=== PATIENT | male | born 1950 | race Caucasian/White ===

== ENCOUNTER 2023-08-26 09:30 | Outpatient (AMB) | payer MEDICARE, SELFPAY ==
--- NOTE | 2023-08-26 09:37 | HO.NEPHOV ---
HPI HPI Comments History of Present Illness Details I had the privilege of seeing Steve in follow-up of his hypertension. He has been on enalapril 10 mg as well as amlodipine 10 mg daily at home. Now and then he brings a dose down to 5 mg without checking with a physician(when he feels his blood pressure is low even though he does not have any symptoms at that time). His lowest systolic reading was 112 at home. He has not had any blood work recently. He has no history of hypokalemia, renal dysfunction, hypercalcemia, thyroid dysfunction or sleep apnea. He takes a normal diet. He is a smoker. He denies coronary artery disease, congestive heart failure, CVA, renal artery stenosis or peripheral arterial disease. He monitors his blood pressure at home. He feels well. [facility] Medical History (Updated 08/26/23 @ 12:10 by Connor Perla MD) Hypertension Social History (Updated 08/26/23 @ 09:41 by Angela White MA) Alcohol intake: current Patient Tobacco Use Status: Current everyday Tobacco user Vital Signs 08/26/23 09:38 Height 5 ft 9 in Weight 177 lb 6 oz BMI 26.2 BP 140/80 H Blood Pressure Location Lt brachial Position Sitting Pulse 87 Pulse Source Pulse Oximeter Pulse Oximetry (%) 99 Oxygen Delivery Method Room Air Physical Exam Vital Signs: Last Vital Signs Pulse 87 08/26/23 09:38 BP 140/80 H 08/26/23 09:38 Pulse Ox 99 08/26/23 09:38 Oxygen Delivery Method Room Air 08/26/23 09:38 BMI result Body Mass Index 26.2 Const General: comfortable and no acute distress Orientation/consciousness: patient oriented x3 HEENT Head: Yes normocephalic Mouth: Normal oral and palatal mucosa present Eyes EOM: EOMs intact bilaterally Neck Neck: Yes supple Resp Auscultation: clear to auscultation bilaterally Cardio Jugular venous distension: no JVD Rate: regular rate GI Palpation (GI): Soft to palpation Auscultation: normal bowel sounds General: Yes no CVA tenderness Back/Spine/Pelvis Back: no CVA tenderness Skin General skin exam: no rashes or lesions noted Neuro General: patient oriented x3 and moves all extremities Extrem General: Yes no pedal edema Assessment & Plan Assessment & Plan (1) Hypertension: Code(s): I10 - Essential (primary) hypertension Qualifiers: Hypertension type: primary hypertension Qualified Code(s): I10 - Essential (primary) hypertension Plan All his blood pressure readings from home were reviewed. I asked him to continue enalapril 10 mg in the morning and amlodipine 10 mg at supper time. He has no history of left ventricular hypertrophy, retinopathy or proteinuria. His renal functions have been normal. I asked him to stop smoking. He should continue low-sodium diet and exercise. He should maintain good hydration. He should avoid nonsteroidal anti-inflammatories given he is on ARSEN-inhibitor. I did not make any other medication changes today. All his questions were answered. Follow-up blood work ordered and follow-up appointment given. Orders: Orders Creatinine Today I10 - Essential (primary) hypertension Protein Creatinine Ratio, Ur Today I10 - Essential (primary) hypertension Electrolytes Today I10 - Essential (primary) hypertension Calcium Today I10 - Essential (primary) hypertension Blood Urea Nitrogen Today I10 - Essential (primary) hypertension Coding Level of Care Code Est Pt Level 4 (45903) Diagnoses Primary hypertension I10 Hypertension type: primary hypertension Results Reviewed Nephrology Results: No Data to Display
[2023-08-26 09:38] VITALS: BP 140/80; PULSE 87; O2SAT 99; BMI 26.2
== END 2023-08-26 10:31 | disposition home or self-care (01) ==
PROVIDERS: PCP Internal Medicine; Visit Provider Internal Medicine Nephrology
DX: I10 Essential (primary) hypertension (principal)
CPT/HCPCS: 99214

== ENCOUNTER → 2023-08-26 09:30 | Outpatient (BNVA) | payer MEDICARE, SELFPAY | PROVIDERS: PCP Internal Medicine; Visit Provider Internal Medicine Nephrology ==

== ENCOUNTER 2023-08-26 10:20 | Outpatient (REF) | payer MEDICARE, SELFPAY ==
[2023-08-26 17:04] LABS: Anion Gap 9 (12-20); Blood Urea Nitrogen 13 mg/dL (9-16); Calcium 9.3 mg/dL (8.4-10.2); Carbon Dioxide 28 mmol/L (22-29); Chloride 106 mmol/L (96-108); Estimated Glomerular Filt Rate > 60; Potassium 4.1 mmol/L (3.3-5.1); Sodium 139 mmol/L (135-145)
[2023-08-26 17:18] LABS: Creatinine Urine 37.87 mg/dL; Total Protein Urine Random < 7 mg/dL (<12)
== END 2023-08-26 10:21 | disposition home or self-care (01) ==
LOC: HO.HKASLDS 10:20
PROVIDERS: Visit Provider Internal Medicine Nephrology
DX: I10 Essential (primary) hypertension (principal)
CPT/HCPCS: 36415; 80051; 82310; 82565; 82570; 84156; 84520; 99212

== ENCOUNTER 2024-01-27 10:05 | Outpatient (AMB) | payer MEDICARE, SELFPAY ==
--- NOTE | 2024-01-27 10:05 | HO.NEPHOV_ITS ---
Vital Signs 01/27/24 10:06 Height 5 ft 9 in Weight 169 lb BMI 25.0 BP 168/90 H Blood Pressure Location Lt brachial Position Sitting Pulse 97 Pulse Source Pulse Oximeter Pulse Oximetry (%) 99 Oxygen Delivery Method Room Air Intake Visit Reasons: 4 mon follow up/[place] Expert Required: No Accompanied by: Self / Same As Patient Allergies No Known Allergies Allergy (Verified 01/27/24 10:08) HPI Comments Details: I had the privilege of seeing Steve in follow-up of his hypertension. He has been on enalapril 10 mg as well as amlodipine 10 mg daily at home. His lowest systolic reading was 112 at home. He has no history of hypokalemia, renal dysfunction, hypercalcemia, thyroid dysfunction or sleep apnea. He takes a normal diet. He is a smoker. He denies coronary artery disease, congestive heart failure, CVA, renal artery stenosis or peripheral arterial disease. He monitors his blood pressure at home. He feels well [facility] Medical History Hypertension Surgical History H/O colonoscopy Social History Alcohol intake: current Patient Tobacco Use Status: Current everyday Tobacco user Review of Systems Const All systems reviewed & are unremarkable except as noted in HPI and below Physical Exam Vital Signs: Last Vital Signs Pulse 97 01/27/24 10:06 BP 168/90 H 01/27/24 10:06 Pulse Ox 99 01/27/24 10:06 Oxygen Delivery Method Room Air 01/27/24 10:06 BMI result Body Mass Index 25.0 Const General: comfortable and no acute distress Orientation/consciousness: patient oriented x3 HEENT Head: Yes normocephalic Mouth: Normal oral and palatal mucosa present Eyes EOM: EOMs intact bilaterally Neck Neck: Yes supple Resp Auscultation: clear to auscultation bilaterally Cardio Jugular venous distension: no JVD Rate: regular rate GI Palpation (GI): Soft to palpation Auscultation: normal bowel sounds General: Yes no CVA tenderness Back/Spine/Pelvis Back: no CVA tenderness Skin General skin exam: no rashes or lesions noted Neuro General: patient oriented x3 and moves all extremities Extrem General: Yes no pedal edema Results Reviewed Nephrology Results: Sodium 139 mmol/L (135-145) 08/26/23 Potassium 4.1 mmol/L (3.3-5.1) 08/26/23 Chloride 106 mmol/L (96-108) 08/26/23 Carbon Dioxide 28 mmol/L (22-29) 08/26/23 BUN 13 mg/dL (9-16) 08/26/23 Creatinine 0.78 mg/dL (0.5-1.4) 08/26/23 Calcium 9.3 mg/dL (8.4-10.2) 08/26/23 Urine Creatinine 37.87 mg/dL 08/26/23 Protein/Creatinin Ratio TNP 08/26/23 Assessment & Plan Assessment & Plan (1) Hypertension: Code(s): I10 - Essential (primary) hypertension Category: Medical Qualifiers: Hypertension type: primary hypertension Qualified Code(s): I10 - Essential (primary) hypertension Plan All his blood pressure readings from home were reviewed. I asked him to increase enalapril to 15 mg in the morning and reduce amlodipine to 5 mg at supper time. He has no history of left ventricular hypertrophy, retinopathy or proteinuria. His renal functions have been normal. I asked him to stop smoking. He should continue low-sodium diet and exercise. He should maintain good hydration. He should avoid nonsteroidal anti-inflammatories given he is on ARSEN-inhibitor. I plan to maximize ACEI and D/C Amlodipine at next visit. I did not make any other medication changes today. All his questions were answered. Follow-up blood work ordered and follow-up appointment given Orders: Orders Creatinine Today I10 - Essential (primary) hypertension Electrolytes Today I10 - Essential (primary) hypertension Blood Urea Nitrogen Today I10 - Essential (primary) hypertension Coding Level of Care Code Est Pt Level 4 (69539) Diagnoses Primary hypertension I10 Hypertension type: primary hypertension
[2024-01-27 10:06] VITALS: BP 168/90; PULSE 97; O2SAT 99; BMI 25.0
== END 2024-01-27 10:45 | disposition home or self-care (01) ==
PROVIDERS: PCP Internal Medicine; Visit Provider Internal Medicine Nephrology
DX: I10 Essential (primary) hypertension (principal)
CPT/HCPCS: 99214

== ENCOUNTER → 2024-01-27 10:05 | Outpatient (BNVA) | payer MEDICARE, SELFPAY | PROVIDERS: PCP Internal Medicine; Visit Provider Internal Medicine Nephrology | DX: I10 Essential (primary) hypertension (principal) | CPT/HCPCS: 99212 ==

== ENCOUNTER 2024-07-27 10:38 | Outpatient (AMB) | payer MEDICARE, SELFPAY ==
[2024-07-27 10:45] VITALS: BP 150/80; BMI 25.6
--- NOTE | 2024-07-27 10:45 | HO.NEPHOV ---
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 He has been on enalapril 10 mg as well as amlodipine 10 mg daily at home. He has no history of hypokalemia, renal dysfunction, hypercalcemia, thyroid dysfunction or sleep apnea. He takes a normal diet. He is a smoker. He denies coronary artery disease, congestive heart failure, CVA, renal artery stenosis or peripheral arterial disease. He monitors his blood pressure at home. He feels well [facility] Medical History Hypertension Surgical History H/O colonoscopy Social History Alcohol intake: current Patient Tobacco Use Status: Current everyday Tobacco user Review of Systems Const All systems reviewed & are unremarkable except as noted in HPI and below Physical Exam Vital Signs: Last Vital Signs BP 150/80 H 07/27/24 10:45 BMI result Body Mass Index 25.6 Const General: comfortable and no acute distress Orientation/consciousness: patient oriented x3 HEENT Head: Yes normocephalic Mouth: Normal oral and palatal mucosa present Eyes EOM: EOMs intact bilaterally Neck Neck: Yes supple Resp Auscultation: clear to auscultation bilaterally Cardio Jugular venous distension: no JVD Rate: regular rate GI Palpation (GI): Soft to palpation Auscultation: normal bowel sounds General: Yes no CVA tenderness Back/Spine/Pelvis Back: no CVA tenderness Skin General skin exam: no rashes or lesions noted Neuro General: patient oriented x3 and moves all extremities Extrem General: Yes no pedal edema Results Reviewed Nephrology Results: Sodium 139 mmol/L (135-145) 08/26/23 Potassium 4.1 mmol/L (3.3-5.1) 08/26/23 Chloride 106 mmol/L (96-108) 08/26/23 Carbon Dioxide 28 mmol/L (22-29) 08/26/23 BUN 13 mg/dL (9-16) 08/26/23 Creatinine 0.78 mg/dL (0.5-1.4) 08/26/23 Calcium 9.3 mg/dL (8.4-10.2) 08/26/23 Urine Creatinine 37.87 mg/dL 08/26/23 Protein/Creatinin Ratio TNP 08/26/23 Assessment & Plan Assessment & Plan (1) Hypertension: Code(s): I10 - Essential (primary) hypertension Category: Medical Qualifiers: Hypertension type: primary hypertension Qualified Code(s): I10 - Essential (primary) hypertension Plan All his blood pressure readings from home were reviewed. I asked him to take enalapril 10 mg in the morning and amlodipine 5 mg daily. He has no history of left ventricular hypertrophy, retinopathy or proteinuria. His renal functions have been normal. I asked him to stop smoking. He should continue low-sodium diet and exercise. He should maintain good hydration. He should avoid nonsteroidal anti-inflammatories given he is on ARSEN-inhibitor. I did not make any other medication changes today. All his questions were answered. Follow-up blood work ordered and follow-up appointment given Orders: Orders Blood Urea Nitrogen 1 Year I10 - Essential (primary) hypertension Electrolytes 1 Year I10 - Essential (primary) hypertension Creatinine 1 Year I10 - Essential (primary) hypertension Protein Creatinine Ratio, Ur 1 Year I10 - Essential (primary) hypertension Coding Level of Care Code Est Pt Level 4 (35291) Diagnoses Primary hypertension I10 Hypertension type: primary hypertension
--- OUTSIDE RECORDS SUMMARY | 2024-07-27 12:43 | XMS_ITS | Clinical Summary ---
Author Organization [facility] Address [address] [place] [address] Phone Care Team Providers Care Food Service Hotel Runner Name Role Phone Ken Cohen Primary Care Provider [phone] Allergies No known active allergies Medications Flovent HFA 110 MCG/ACT inhaler INHALE 1 PUFF INTO THE LUNGS 2 TIMES DAILY FOR 30 DAYS. 11/19/2021 Active enalapril (VASOTEC) 10 MG tablet Take 1 tablet (10 mg total) by mouth 1 (one) time each day 90 tablet 3 08/27/2022 Active amLODIPine (NORVASC) 10 MG tablet TAKE 1 TABLET BY MOUTH 1 TIME EACH DAY. 90 tablet 1 11/26/2022 Active Active Problems Problem Noted Date Diagnosed Date Hypertension 08/19/2021 Benign hypertension 12/16/2007 Resolved Problems Problem Noted Date Diagnosed Date Resolved Date Tubular adenoma of colon 06/19/2015 Tobacco user 11/06/2005 08/18/2021 Hyperlipidemia 06/19/2005 08/18/2021 Immunizations Name Administration Dates Next Due Influenza Split High Dose Preservative Free IM 03/03/2021,03/23/2019,03/25/2018,2016 Pneumococcal Conjugate 13-Valent 03/23/2019 Tdap 01/09/2008 Family History Medical History Relation Comments Hypertension Father Relation Status Comments Father Mother Social History Tobacco Use Types Packs/Day Years Used Date Smoking Tobacco: Every Day Cigarettes Smokeless Tobacco: Never Tobacco Cessation:Ready to Q uit: No; Counseling Given: No Alcohol Use Standard Drinks/Week Comments Yes 10 (1 standard drink = 0.6 oz pu re alcohol) Sex and Gender Information Value Date Recorded Sex Assigned at Not on file Legal Sex Male 3:53 PM EST Gender Identity Not on file Sexual Orientation Not on file Last Filed Vital Signs Vital Sign Reading Time Taken Comments Blood Pressure 130/80 08/27/2022 2:26 PM EDT Pulse 88 08/27/2022 2:26 PM EDT Temperature - - Respiratory Rate - - Oxygen Saturation 97% 08/27/2022 2:26 PM EDT Inhaled Oxygen Concentration - - Weight 80.5 kg (177 lb 6.4 oz) 08/27/2022 2:26 P M EDT Height - - Body Mass Index - - Plan of Treatment Health Maintenance Due Date Last Done Comments Colorectal Cancer Screening: Annual FOBT 2000 Colorectal Cancer Screening: Colonoscopy 2000 Colorectal Cancer Screening: Sigmoidoscopy 2000 Pneumococcal Vaccine: 65+ Years (2 of 2 - PPSV23 or PCV20) 05/18/2019 03/23/2019 Influenza Vaccine (#1) 2024 , 03/23/2019, 03/25/2018, Additional history exists Hepatitis B Vaccine Aged Out No longe r eligible based on patient's age to complete this topic Insurance MEDICARE [facility] [id number] [facility] MEDICARE Care Teams Food Service Hotel Runner Relationship Specialty Start Date End Date Ken Cohen [address] [place] [id number] PCP - General Internal Medicine 08/19/21
--- OUTSIDE RECORDS SUMMARY | 2024-07-27 12:43 | XMS_ITS | Encounter Summary ---
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 Date: July 03, 2024 Diagnosis: Left hand thumb felon Last seen: 06/28/2024 HPI: Steve Perera is a [id number] 74 y.o. male presenting for followup regarding left thumb felon. He was seen by Dr. Muñoz on 06/28/2024 where his thumb was debrided with a digital block. Patient removed his wick packing at home on 06/30 and has been doing daily dressing changes with bacitracin since then. He was prescribed clindamycin at his last visit and reports he has been taking this daily as prescribed. Denies much pain today. Denies any numbness and tingling. Reports that he has felt that his wound has been improving. Denies any diarrhea or constipation since new antibiotic use. Denies any fevers or chills. Objective Focused Exam: Left Upper Extremity Dressing removed. 2 cm x 1 cm wound along the radial aspect of the distal thumb status post debridement on 06/28/2024. New skin formation present at the area of the wound. There is some maceration of the remaining skin most notably at the radial portion and distal tip of the wound. No drainage. No tenderness to palpation at the flexor tendon sheath. Minimal pain with IP flexion. There is improvement of his erythema and swelling comparison to last visit. Fires EPL/FPL/FDP/IO SILT M/R/U, decreased sensation to light touch over thumb. hand warm well perfused Imaging: No new imaging Medical Decision Making (base on 2 out of 3 elements): Problems Addressed: Moderate- 1 acute, complicated injury Tests Ordered and/or Reviewed: Low Risk Level: Low risk Assessment: Steve Krishna Perera presents follow-up with miriam amezquita status postdebridement with Dr. Muñoz on06/28/2024. He has been taking clindamycin and doing daily dressing changes since then. He appears анна doing better on physical exam today with signs of healing. Denies any fevers or chills or signs of systemic infection. We discussed continuing daily dressing changes with bacitracin ointment, Xeroform, and gauze. Recommended to keep the dressing clean dry and intact. We also discussed gentle washing of the finger before each dressing change. I discussed avoiding soaking the finger for extendedperiod of time. He is advised to finish the entirety of his clindamycin as prescribed. Would like close follow-up and monitoring and follow-up the patient within the next week. I advisedhim to call the office sooner if he has signs of worsening of infection including increased redness, swelling, fevers, chills, new draining. He is understanding of this plan and all other questions were answered at this time. Plan: Left thumb felon -Continue daily dressing changes with application of bacitracin, Xeroform, gauze. -Close follow-up in 5 to 7 days or for new or worsening symptoms -Continue clindamycin as prescribed Luis Morales PA-C documented in this encounter Plan of Treatment Upcoming Encounters Date Type Department Care Team (Late st Contact Info) Description 10/17/2024 9:30 AM EDT Office Visit Internal Medicine - [address] [address] Ken Cooper MD [address] [place] [id number] documented as of this encounter Visit Diagnoses Diagnosis Felon of finger of left hand- Primary documented in this encounter Care Teams Foam Caster Relationship Specialty Start Date End Date Ken Cooper MD [address] [place] [id number] PCP - General Internal Medicine 03/11/16 documented as of this encounter
--- OUTSIDE RECORDS SUMMARY | 2024-07-27 12:43 | XMS_ITS | Clinical Summary ---
Author Organization [facility] [address] [facility] [address] [place] Phone Care Team Providers Care Sales Floor Manager Name Role Phone Ken Cooper MD Primary Care Provider [phone] Allergies No known active allergies Medications enalapril (VASOTEC) 10 mg tablet Take 1 Tablet by mouth every morning. 10/15/2023 Active amLODIPine (NORVASC) 10 mg tablet Take 1 tablet (10 mg total) by mouth 1 (one) time each day. 90 tablet 1 04/19/2024 Active cephalexin (KEFLEX) 500 mg capsuleIndicati ons:Felon of finger of left hand Take 1 capsule (500 mg total) by mouth 4 (four) times a day for 7 days. 28 each 06/26/2024 07/03/19 25 clindamycin (CLEOCIN) 300 mg capsule Take 1 capsule (300 mg total) by mouth 3 (three) times a day for 7 days. 21 each 06/28/2024 07/05/19 25 Active Problems Problem Noted Date Diagnosed Date Tubular adenoma of colon 06/19/2015 Assessment & Plan (04/17/2024 10:02 AM EST): Repeat colonoscopy in 3 years for his history of colon polyp. HTN (hypertension), benign 12/16/2007 Assessment & Plan (04/17/2024 10:02 AM EST): Blood pressure suboptimal. I did explain to him that I would like him to take amlodipine 10 mg daily enalapril 10 mg daily. I want him to be compliant his medication regimen. He seems disapproving about taking the full tablet. Advised him to keep a blood pressure log. Does not want sooner follow-up for blood pressure check. He wants to follow-up in 6 months time. Orders: Basic metabolic panel; Future Tobacco use disorder 11/06/2005 Assessment & Plan (04/17/2024 10:02 AM EST): Smoking cessation counseling done but patient refuses to quit smoking he does not want low-dose CAT scan of the lung. I did tell him that he has a potential risk of lung cancer given his smoking history. Hyperlipidemia 06/19/2005 Assessment & Plan (04/17/2024 10:02 AM EST): Low-cholesterol diet discussed. Will check lipid panel. Orders: Lipid panel with reflex to direct LDL; Future Encounters Date Type Department Care Team Description 07/03/2024 9:00 AM EST Office Visit Orthopedic Surgery [facility] [address] [facility] [address] [place] [id number] Luis Morales PA Felon of finger of left hand (Primary Dx) 06/28/2024 1:30 PM EST Consult Orthopedic Surgery [facility] [address] [facility] [address] [place] [id number] Colton Muñoz MD Felon of finger of left hand 06/26/2024 10:00 AM EST Office Visit [facility] [address] [phone] Ihsan Hurley PA Felon of finger of left hand (Primary Dx) from Last 3 Months Immunizations Name Administration Dates Next Due Influenza trivalent, 0.5mL ( Fluzone High-dose) 65yo and older 02/18/2022,03/03/2021,03/23/2019,2017,02/09/2017 Influenza trivalent, with preservative (Fluzone; Afluria) 6mo and older 03/01/2014,02/27/2013,03/01/2012,2010,02/24/2010,01/30/2009,03/12/2008 PPD Test 01/30/2009 Pneumococcal conjugate 13 va lent (Prevnar 13, PCV13) 2mo and older 03/23/2019 Tdap Tetanus diptheria acell ular pertussis (Boostrix; Adacel) 7yo and older 01/09/2008 Surgical History Surgery Date Site/Laterality Comments HEMORRHOID SURGERY PROCEDURE: HISTORICAL HEMMORROIDECTOMY COLONOSCOPY 03/17/15 PROCEDURE: HISTORICAL COLONOSCOPY; COMMENT: Aadenomas; repeat in 5 yrs Medical History Medical History Date Comments Tobacco use disorder 11/06/2005 DX:Tobacco use disorder Other and unspecified hyperlipidemia 06/19/2005 DX:Other and unspecified hyperlipidemia HTN (hypertension), benign 12/16/2007 DX:HT N (hypertension), benign Family History Medical History Relation Name Comments Coronary artery disease Brother Cataracts Father Blindness Neg Hx Glaucoma, macul ar degeneration, strabismus Glaucoma Neg Hx Macular degeneration Neg Hx Strabismus Neg Hx Relation Name Status Comments Brother Alive 1, Father Alive healthy Mother in car acc ident Sister Alive 2,healthy Social History Tobacco Use Types Packs/Day Years Used Date Smoking Tobacco: Every Day Cigarettes Smokeless Tobacco: Never Alcohol Use Standard Drinks/Week Comments Yes 0 (1 standard drink = 0.6 oz pur e alcohol) Sex and Gender Information Value Date Recorded Sex Assigned at Not on file Legal Sex Male 9:45 AM EST Gender Identity Not on file Sexual Orientation Not on file Obstetrics History Last Filed Vital Signs Vital Sign Reading Time Taken Comments Blood Pressure 156/74 06/26/2024 10:03 AM EST Pulse 100 06/26/2024 10:03 AM EST Temperature 36.3 ??C (97.3 ??F) 06/26/2024 10:[address] Respiratory Rate - - Oxygen Saturation - - Inhaled Oxygen Concentration - - Weight 77.1 kg (170 lb) 06/28/2024 1:28 PM EST Height 175.3 cm (5' 9.02 ) 06/28/2024 1:28 PM ES T Body Mass Index 25.09 06/28/2024 1:28 PM EST Plan of Treatment Upcoming Encounters Date Type Department Care Team (Late st Contact Info) Description 10/17/2024 9:30 AM EDT Office Visit [facility] [address] [facility] [place] [address] Ken Cooper MD [address] [place] [address] Health Maintenance Due Date Last Done Comments Zoster Vaccines (1 of 2) 2001 DTaP,Tdap,and Td Vaccines (2 - Td or Tdap) 01/08/2018 01/09/2008 Pneumococcal Vaccine: 50+ Years (2 of 2 - PPSV23) 05/18/2019 03/23/2019 Falls Risk Assessment 04/26/2022 Social Influencers of Health Screening 04/26/2022 COVID-19 Vaccine ( - season) 2024 Depression Screening 10/14/2024 10/15/2023 Medicare Annual Wellness Visit 10/14/2024 10/15/2023 Hypertension/CHF/CAD Annual BMP Blood Test 07/21/2025 07/21/2024, 10/19/2023, 10/19/2023 RSV Immunization Patients 60+ Years Old (1 - 1-dose 75+ series) 2026 Colorectal Cancer Screening: Colonoscopy 11/10/2028 11/11/2023 Cholesterol Screening (Lipid Panel) 07/21/2029 07/21/2024, 08/28/2021 Abdominal Aortic Aneurysm (AAA) Screen Completed 03/05/2011 Hepatitis C Screening Completed 12/26/2012 Influenza Vaccine Completed 03/01/2024, , 02/18/2022, Additional history exists HIB Vaccines Aged Out No longer eligi ble based on patient's age to complete this topic HPV Vaccines Aged Out No longer eligi ble based on patient's age to complete this topic Hepatitis A Vaccines Aged Out No long er eligible based on patient's age to complete this topic Hepatitis B Vaccines Aged Out No long er eligible based on patient's age to complete this topic IPV Vaccines Aged Out No longer eligi ble based on patient's age to complete this topic MMR Vaccines Aged Out No longer eligi ble based on patient's age to complete this topic Meningococcal ACWY Vaccine Aged Out N o longer eligible based on patient's age to complete this topic Meningococcal B Vacine Aged Out No lo nger eligible based on patient's age to complete this topic RSV Immunization Patients Under 20 months Aged Out No longer eligible based on patient's age to complete this topic Varicella Vaccines Aged Out No longer eligible based on patient's age to complete this topic Procedures Procedure Name Priority Date/Time Associated Diagnosis Comments LIPID PANEL WITH REFLEX TO DIRECT LDL Routine 07/21/2024 10:36 AM EST Hyperlipidemia, unspecified hyperlipidemia type BASIC METABOLIC PANEL Routine 07/21/2024 10:36 AM EST HTN (hypertension), benign UT DRAINAGE ABSCESS FINGER SIMPLE Routine 06/28/2024 2:51 PM EST Felon of finger of left hand COLONOSCOPY Routine 11/11/2023 DEPRESSION SCREENING Routine 10/15/2023 HEPATITIS C SCREENING Routine 12/26/2012 ABDOMINAL AORTIC ANEURYSM SCRREN Routine 03/05/2011 from Last 3 Months or Most Recently Relevant to Health Maintenance Results * (ABNORMAL) Lipid panel with reflex to direct LDL (07/21/2024 10:36 AM EST) Cholesterol 198 0 - 200 mg/dL LAB CHEMISTRY METHOD 07/21/2024 4:01 PM [facility] Triglycerides 105 0 - 150 mg/dL LAB CHEMISTRY METHOD 07/21/2024 4:01 PM [facility] HDL 53 >=40 mg/dL LAB CHEMISTRY METHOD 07/21/2024 4:01 PM [facility] LDL Calculated 124(H) 0 - 100 mg/dL LAB CHEMISTRY METHOD 07/21/2024 4:01 PM [facility] VLDL Cholesterol Roland 21 mg/dL LAB CHEMISTRY METHOD 07/21/2024 4:01 PM [facility] Non HDL Chol. (LDL+VLDL) 145(H) <145 mg/dL LAB CHEMISTRY METHOD 07/21/2024 4:01 PM [facility] Chol/HDL Ratio 3.7 0.0 - 4.4 LAB CHEMISTRY METHOD 07/21/2024 4:01 PM [facility] Blood Venous blood specimen / Unknown Venipuncture / Unknown 07/21/2024 10:36 AM EST 07/21/2024 10:36 AM EST us Ken Cooper MD LAB BLOOD ORDERABLES Kesha l Result [facility] [address] [place] [address], * Basic metabolic panel (07/21/2024 10:36 AM EST) Sodium 140 133 - 145 mmol/L LAB CHEMISTRY METHOD 07/21/2024 4:15 PM [facility] Potassium 4.6 3.5 - 5.5 mmol/L LAB CHEMISTRY METHOD 07/21/2024 4:15 PM [facility] Chloride 108 96 - 110 mmol/L LAB CHEMISTRY METHOD 07/21/2024 4:15 PM [facility] CO2 28 21 - 32 mmol/L LAB CHEMISTRY METHOD 07/21/2024 4:15 PM [facility] Anion Gap 4 3 - 11 LAB CHEMISTRY METHOD 07/21/2024 4:15 PM [facility] Glucose 82 70 - 100 mg/dL LAB CHEMISTRY METHOD 07/21/2024 4:15 PM [facility] BUN 14 5 - 25 mg/dL LAB CHEMISTRY METHOD 07/21/2024 4:15 PM [facility] Creatinine 0.88 0.70 - 1.30 mg/dL LAB CHEMISTRY METHOD 07/21/2024 4:15 PM [facility] eGFR 91 >=60 mL/min/1. 73m2 LAB CHEMISTRY METHOD 07/21/2024 4:15 PM EST [facility] Comment:Calculation based on the??Chronic Kidney Disease Epidemiology Collaboration (CKD-EPI) equation refit??without adjustment for race. BUN/Creatinine Ratio 15.9 LAB CHEMISTRY METHOD 07/21/2024 4:15 PM EST [facility] Calcium 9.3 8.5 - 10.5 mg/dL LAB CHEMISTRY METHOD 07/21/2024 4:15 PM EST [facility] Blood Venous blood specimen / Unknown Venipuncture / Unknown 07/21/2024 10:36 AM EST 07/21/2024 10:36 AM EST Ken Cooper MD LAB BLOOD ORDERABLES Kesha jackson Result [facility] [address] [place] [address], * UT DRAINAGE ABSCESS FINGER SIMPLE (06/28/2024 2:51 PM EST) Narrative Colton Muñoz MD - 06/28/2024 2:51 PM EST Colton Muñoz MD ? 06/28/2024 ??2:56 PM Incision and Drainage Date/Time: 06/28/2024 2:51 PM Performed by: Colton Muñoz MD Authorized by: Colton Muñoz MD ?? Informed Consent: ??Site: ??Left thumb Felon ??Laterality: ??Left ??Relevant images/test results available and reviewed: yes ?Health status cleared: ??Yes ??Procedure/treatment, purpose, treatment alternatives, risks/potential complications and benefits explained: yes ?Risk/complications/benefits details: ??We discussed the risk benefits of debridement. ??Benefits of debridement allow decompression of the fluid and better healing of the infection and access of antibiotics to the affected tissues. ??Risks of the procedure involve damage to surrounding structures, possible persistent nail deformity and delayed wound healing. ??Risks of continued antibiotic treatment include continued infection and damage to surrounding structures and nail deformity. ??Patient questions answered: yes ?Patient agrees, verbalizes understanding, and wants to proceed: yes ?Consent given by: ??Patient ??Informed consent discussion completed by Physician/SOFIA with patient: ?? Verbal ??Pre-procedure timeout performed: yes ?? Location: ??Indication: abcess ?Size: ??1 cm ??Body area: ??Upper extremity ??Upper extremity location: ??L thumb Procedure type: ??Complexity: ??Simple ??Type: incision ?? Pre-procedure details: ??Pre-procedure photo taken?: Yes ?Skin preparation: ??Alcohol ??Preparation: Patient was prepped and draped in the usual sterile fashion ??Anesthesia method: ??Nerve block ??Local anesthetic: ??Lidocaine 1% w/o epi ??Amount given (mL): ??10 Procedure details: ??Incision types: ??Single straight ??Incision depth: ??Subcutaneous ??Scalpel blade: ??15 ??Wound management: ??Probed and deloculated ??Drainage characteristics: seropurulent. ??Drainage amount: ??Moderate ??Hemostasis achieved: Yes ?Hemostasis obtained with: ??Pressure ??Wound treatment: ??Wound left open (wick placed) ??Packing materials: ??1/4 in iodoform gauze ??Amount 1/4 iodoform: ??2 Post-procedure details: ??Estimated blood loss: ??Less than 10 mL ??Post-procedure photo taken?: Yes ?Dressing: ??Sterile dressing and antibiotic ointment ??Patient tolerance of procedure: patient tolerated the procedure well with no immediate complications ?Describe: ??Finger was prepped and draped in usual sterile fashion using similar send isopropyl alcohol. ??10 cc of 1% lidocaine was used to perform a digital block. ??After adequate anesthesia, a radial longitudinal incision was performed at the distal aspect of the phalanx. ??This was then bluntly dissected and septations were divided using a blunt instrument, seropurulent discharge was encountered, this was tracked proximally under the nail plate. ??The superficial necrotic tissue was debrided proximally, there was healthy bleeding tissue underneath without evidence of a deeper infection. ??The abscess seemed isolated under the distal phalanx and subungual. ??He was felt to be adequately decompressed without removal of the nail. ??A quadrant iodoform wick was placed. ??Bacitracin ointment was applied and a dry sterile dressing with a Coban wrap was over place. Instructions on maintenance of the dressing and dressing change tomorrow were provided. ??Patient will follow-up in 2 days for repeat evaluation. ?? He is to remove the wick tomorrow and reapply dry sterile dressing. ??Post-procedure care was discussed and patient was instructed to call with any increased pain: Yes ?Wound care sheet and aftercare instructions provided: No ?Patient instructed to return: Yes ?? Result [facility] Colton Muñoz MD IN CLINIC/BEDSIDE ORDERABLES Fin al Result * Colonoscopy (11/11/2023) [facility] Colonoscopy abstracted, no interpretation Anatomical Region Laterality Modality Other Result [facility] HEALTH MAINTENANCE Final Result * Depression Screening (10/15/2023) [facility] Depression Screening abstracted Result [facility] HEALTH MAINTENANCE Final Result * Hepatitis C Screening (12/26/2012) [facility] Hepatitis C Screening abstracted Result [facility] HEALTH MAINTENANCE Final Result * Abdominal Aortic Aneurysm Screen (03/05/2011) [facility] Abdominal Aortic Aneurysm (AAA) Screening abstracted Anatomical Region Laterality Modality Other Result [facility] HEALTH MAINTENANCE Final Result from Last 3 Months or Most Recently Relevant to Health Maintenance Insurance [employer] Care Teams Sales Floor Manager Relationship Specialty Start Date End Date Ken Cooper MD [address] [place] [id number] PCP - General Internal Medicine 03/11/16
--- OUTSIDE RECORDS SUMMARY | 2024-07-27 12:43 | XMS_ITS | Encounter Summary ---
Author Organization [facility] Address [address] [place] [address] Care Team Providers Care Manufacturing Plant Technician Name Role Phone Ken Cooper MD Primary Care Provider [phone] Reason for Visit * Reason Comments Consult Felon of finger (L) hand * Consultation (Urgent) - Closed Specialty Diagnoses / Procedures Referred By Contac t Referred To Contact Hand Surgery / Orthopaedic Surgery Diagnoses Felon of finger of left hand Ihsan Hurley PA [address] [place] [id number] Phone: tel: fax: Colton Muñoz MD [address] [place] [address] Phone: tel: fax: Referral ID Status Reason Start Date Expiration Date V isits Requested Visits Authorized [id number] Closed Specialty Services Required 06/26/2024 06/26/2025 1 1 Encounter Details Date Type Department Care Team (Late st Contact Info) Description 06/28/2024 1:30 PM EST Consult Orthopedic Surgery - [address] [phone] Colton Muñoz MD [address] [place] [id number] Felon of finger of left hand Social History Tobacco Use Types Packs/Day Years [...] on file documented as of this encounter Last Filed Vital Signs Vital Sign Reading Time Taken Comments Blood Pressure - - Pulse - - Temperature - - Respiratory Rate - - Oxygen Saturation - - Inhaled Oxygen Concentration - - Weight 77.1 kg (170 lb) 06/28/2024 1:28 PM EST Height 175.3 cm (5' 9.02 ) 06/28/2024 1:28 PM ES T Body Mass Index 25.09 06/28/2024 1:28 PM EST documented in this encounter Ordered Prescriptions Prescription Sig Dispense Quantity Refills Last Filled Start Date End Date clindamycin (CLEOCIN) 300 mg capsule Take 1 capsule (300 mg total) by mouth 3 (three) times a day for 7 days. 21 each 06/28/2024 documented in this encounter Progress Notes * Colton Muñoz MD - 06/28/2024 1:30 PM ESTAssociated Order(s): Incision and Drainage Post-Procedure Diagnose(s): Felon of finger of left hand Images from the original note were not included. Date: June 28, 2024 Chief Complaint: left thumb felon Date of injury/duration of symptoms: approximately 5 days HPI: Steve Perera is a 74 y.o. male RHD PMH of hypertension presenting for Evaluation of left thumb pain patient says that he was cutting his nail with a file when he nicked his skin on the radial aspect of his thumb. He says this occurred about 5 days ago. He then developed worsening pain and swelling over the next 2 days. He presented to an urgent care on 06/26/2024. At that time he had attempted I&D but says that it was too painful for him to be fully debrided as the local did not take effect. He was placed in a dressing. He says that he had some drainage from the dressing starting this morning and he replaced it with some paper towels and tape that he had available. He says that his pain is actually improved since he has been on the antibiotics. He is not any fevers chills he has not had pain or streaking up into his arm. He does report decreased sensation over his thumb. Urgent care records from 06/26/24 by Ihsan Hurley reviewed. At that time he underwent attempted digitalblock and drainage, this was not successful and he was discharged with keflex. Past Medical History: Diagnosis Date HTN (hypertension), benign 12/16/2007 DX:HTN (hypertension), benign Other and unspecified hyperlipidemia 06/19/2005 DX:Other and unspecified hyperlipidemia Tobacco use disorder 11/06/2005 DX:Tobacco use disorder Past Surgical History: Procedure Laterality Date COLONOSCOPY 03/17/15 PROCEDURE: HISTORICAL COLONOSCOPY; COMMENT: Aadenomas; repeat in 5 yrs HEMORRHOID SURGERY PROCEDURE: HISTORICAL HEMMORROIDECTOMY Family History Problem Relation Name Age of Onset Coronary artery disease Brother Cataracts Father Blindness Neg Hx Glaucoma, macular degeneration, strabismus Glaucoma Neg Hx Macular degeneration Neg Hx Strabismus Neg Hx Social History Socioeconomic History Marital status: Spouse name: Not on file Number of children: Not on file Years of education: Not on file Highest education level: Not on file Occupational History Not on file Tobacco Use Smoking status: Every Day Current packs/day: 0.25 Types: Cigarettes Smokeless tobacco: Never Substance and Sexual Activity Alcohol use: Yes Drug use: No Sexual activity: Not on file Other Topics Concern Not on file Social History 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,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 Current Outpatient Medications: amLODIPine (NORVASC) 10 mg tablet, Take 1 tablet (10 mg total) by mouth 1 (one) time each day., Disp: 90 tablet, Rfl: 1 cephalexin (KEFLEX) 500 mg capsule, Take 1 capsule (500 mg total) by mouth 4 (four) times a day for7 days., Disp: 28 each, Rfl: 0 enalapril (VASOTEC) 10 mg tablet, Take 1 Tablet by mouth every morning., Disp: , Rfl: No Known Allergies Objective Focused Exam: Left Upper Extremity bullae with seropurulent discharge over the radial aspect of the distal phalanx, there is palpable subcutaneous fluid collection over the distal phalanx, he has minimal pain with flexion extension atthe interphalangeal joint of the thumb and no significant erythema proximal to the level of the interphalangeal joint. He has no tenderness to palpation into the palm or along the flexor tendon sheath He reports decreased sensation to light touch over the thumb After consent and a digital block, debridement was performed. He was debrided down to healthy skin,the some seropurulent fluid was encountered under the nail, septations and loculations were bluntlydissected over the distal phalanx, a wick was placed. Imaging/diagnostic studies: No new imaging Medical Decision Making (base on 2 out of 3 elements): Problems Addressed: Moderate- 1 acute, complicated injury Tests Ordered and/or Reviewed: review of previous records and referral from Ihsan Hurley PA-C Risk Level: Moderate risk: discussion of prescription drug management antibiotic therapy Assessment: Steve Perera presents with left thumb bia. He does not have systemic signs of infection, he had a failed attempted debridement 2 days prior. He reports subjective improvement in symptoms on oralKeflex, however on presentation he has significant necrosis of his epidermis and a persistent fluidcollection We discussed his diagnosis and treatment options, we recommended drainage of the abscess and continue antibiotic therapy. We discussed possible admission for IV antibiotics and procedure to the emergency department versusa outpatient based procedure, she is not have systemic signs of infection we have that was safe to trial a debridement in the clinic today with a digital block. He consented to this procedure after voicing understanding of the risks and benefits of debridement. Plan: Left thumb bia -I&d in clinic today -Wick placed -Dressing change tomorrow with removal of wick, application of bacitracin and DSD -Follow-up Wednesday (2 days) for repeat evaluation. -Clindamycin prescribed, (d/c keflex) Incision and Drainage Date/Time: 06/28/2024 2:51 PM Performed by: Colton Muñoz MD Authorized by: Colton Muñoz MD Informed Consent: Site: Left thumb Felsussy Laterality: Left Relevant images/test results available and reviewed: yes Health status cleared: Yes Procedure/treatment, purpose, treatment alternatives, risks/potential complications and benefits explained: yes Risk/complications/benefits details: We discussed the risk benefits of debridement. Benefits of debridement allow decompression of the fluid and better healing of the infection and access of antibiotics to the affected tissues. Risks of the procedure involve damage to surrounding structures, possible persistent nail deformity and delayed wound healing. Risks of continued antibiotic treatment include continued infection and damage to surrounding structures and nail deformity. Patient questions answered: yes Patient agrees, verbalizes understanding, and wants to proceed: yes Consent given by: Patient Informed consent discussion completed by Physician/SOFIA with patient: Verbal Pre-procedure timeout performed: yes Location: Indication: abcess Size: 1 cm Body area: Upper extremity Upper extremity location: L thumb Procedure type: Complexity: Simple Type: incision Pre-procedure details: Pre-procedure photo taken?: Yes Skin preparation: Alcohol Preparation: Patient was prepped and draped in the usual sterile fashion Anesthesia method: Nerve block Local anesthetic: Lidocaine 1% w/o epi Amount given (mL): 10 Procedure details: Incision types: Single straight Incision depth: Subcutaneous Scalpel blade: 15 Wound management: Probed and deloculated Drainage characteristics: seropurulent. Drainage amount: Moderate Hemostasis achieved: Yes Hemostasis obtained with: Pressure Wound treatment: Wound left open (wick placed) Packing materials: / in iodoform gauze Amount /4 iodoform: 2 Post-procedure details: Estimated blood loss: Less than 10 mL Post-procedure photo taken?: Yes Dressing: Sterile dressing and antibiotic ointment Patient tolerance of procedure: patient tolerated the procedure well with no immediate complications Describe: Finger was prepped and draped in usual sterile fashion using similar send isopropyl alcohol. 10 cc of 1% lidocaine was used to perform a digital block. After adequate anesthesia, a radial longitudinal incision was performed at the distal aspect of the phalanx. This was then bluntly dissected and septations were divided using a blunt instrument, seropurulent discharge was encountered, this was tracked proximally under the nail plate. The superficial necrotic tissue was debrided proximally, there was healthy bleeding tissue underneath without evidence of a deeper infection. The abscess seemed isolated under the distal phalanx and subungual. He was felt to be adequately decompressed without removal of the nail. A quadrant iodoform wick was placed. Bacitracin ointment was applied and a dry sterile dressing with a Coban wrap was over place. Instructions on maintenance of the dressing and dressing change tomorrow were provided. Patient will follow-up in 2 days for repeat evaluation. He is to remove the wick tomorrow and reapply dry sterile dressing. Post-procedure care was discussed and patient was instructed to call with any increased pain: Yes Wound care sheet and aftercare instructions provided: No Patient instructed to return: Yes Colton Muñoz MD documented in this encounter Plan of Treatment Upcoming Encounters Date Type Department Care Team (Late st Contact Info) Description 10/17/2024 9:30 AM EDT Office Visit Internal Medicine - [facility] [address] [place], [place] [phone] Ken Cooper MD [address] [place] [id number] documented as of this encounter Procedures Procedure Name Priority Date/Time Associated Diagnosis Comments CA DRAINAGE ABSCESS FINGER SIMPLE Routine 06/28/2024 2:51 PM EST Felon of finger of left hand documented in this encounter Results * CA DRAINAGE ABSCESS FINGER SIMPLE (06/28/2024 2:51 PM [...] No ?Patient instructed to return: Yes ?? us Colton Muñoz MD IN CLINIC/BEDSIDE ORDERABLES Fin al Result documented in this encounter Visit Diagnoses Diagnosis Felon of finger of left hand documented in this encounter Orders Outpatient Referral Count Last Ordered Date Fir st Ordered Date AMB REFERRAL TO HAND SURGERY 1 06/28/2024 documented in this encounter Care Teams Manufacturing Plant Technician Relationship Specialty Start Date End Date Ken Cooper MD [address] [place] [id number] PCP - General Internal Medicine 03/11/16 documented as of this encounter
--- OUTSIDE RECORDS SUMMARY | 2024-07-27 12:43 | XMS_ITS | Encounter Summary ---
Author Organization [facility] Address [address] [place] [address] Phone Care Team Providers Care Liaison Planner Name Role Phone Ken Cohen Primary Care Provider Encounter Details Date Type Department Care Team (Late st Contact Info) Description 09/25/2021 Documentation Only [facility] [address] [place] [phone] Connor Perla MD Social History Tobacco Use Types Packs/Day Years Used Date Smoking Tobacco: Every Day Cigarettes Smokeless Tobacco: Never Alcohol Use Standard Drinks/Week Comments Yes 0 (1 standard drink = 0.6 oz pur e alcohol) Sex and Gender Information Value Date Recorded Sex Assigned at Not on file Legal Sex Male 3:53 PM EST Gender Identity Not on file Sexual Orientation Not on file COVID-19 Exposure Response Date Recorded In the last month, have you been in contact with someone who was confirmed or suspected to have Coronavirus / COVID-19? No / Unsure 09/25/2021 2:52 PM EDT documented as of this encounter Plan of Treatment Not on file documented as of this encounter Visit Diagnoses Not on filedocumented in this encounter Care Teams Liaison Planner Relationship Specialty Start Date End Date Ken Cohen [address] [place] [id number] PCP - General Internal Medicine 08/19/21 documented as of this encounter
== END 2024-07-27 11:06 | disposition home or self-care (01) ==
PROVIDERS: PCP Internal Medicine; Visit Provider Internal Medicine Nephrology
DX: I10 Essential (primary) hypertension (principal)
CPT/HCPCS: 99214

== ENCOUNTER → 2024-07-27 10:38 | Outpatient (BNVA) | payer MEDICARE, SELFPAY | PROVIDERS: PCP Internal Medicine; Visit Provider Internal Medicine Nephrology | DX: I10 Essential (primary) hypertension (principal) | CPT/HCPCS: 99212 ==